=== PATIENT | female | born 1980 | race African-American/Black ===

== ENCOUNTER 2019-08-02 19:23 | Emergency (ER) | payer MEDICARE, OTHER ==
[~2019-08-02] VITALS: Ht 175.3 cm; Wt 72.6 kg
--- NOTE | 2019-08-02 19:24 | NUR ---
ED Nurse Note: Pt brought in by ambulance from home, c/o 06/26 generalized pain and leg cramps. Pt has hx of MS. Pt denies trauma or fall. Pt VSS, Pt A&Ox4
[2019-08-02 19:28] VITALS: BP 100/71
--- NOTE | 2019-08-02 19:41 | Emergency Room Report ---
History of Present Illness General Chief Complaint: Pain Source: Patient Present Illness HPI Disclaimer: Please note that this report is being documented using [employer] technology. This can lead to erroneous entry secondary to incorrect interpretation by the dictating instrument. HPI: 39-year-old female with history of multiple sclerosis presents for evaluation of body wide pain. Symptoms began approximately 1 hour ago. The patient was otherwise in her usual state of health and now complaining of diffuse spasm and cramping over the entire left side of the body, left side of the face, the abdomen but sparing the right upper extremity. She states she has had this pain multiple times in the past. She took 60 mg of baclofen without significant improvement in her symptoms. She had MRIs of her brain and spine 1 month ago showing no acute flare of MS. Otherwise within usual state of health and denies any visual changes, sudden weakness, changes in sensation. PMH: Multiple sclerosis PSH: Reports [employer] surgery many years ago Allergies: Denies Social Hx: Denies Allergies: Coded Allergies: No Known Allergies (Unverified , 08/02/19) Patient History Last Menstrual Period: n/a Nursing Documentation-PMH Past Medical History: No History, Except For Review of Systems All Other Systems: negative except mentioned in HPI Physical Exam Vital Signs Date Time Temp Pulse Resp B/P (MAP) Pulse Ox O2 Delivery O2 Flow Rate FiO2 08/02/19 19:18 100 22 98 Room Air 08/02/19 19:20 98.4 100/71 (81) General: Awake and alert, appears very uncomfortable, diaphoretic, writhing in pain in the bed HEENT: NC/AT. EOMI. symmetrical facial expressions. Cardiovascular: Tachycardic. S1 and S2 normal. No murmur appreciated Resp: Normal work of breathing. No cough, wheezing or crackles appreciated Abdomen: Abdomen is soft, nondistended. Nontender Skin: Intact. No abrasions, laceration or rash over the exposed skin. Diaphoretic MSK: Left upper extremity and lower extremities are very tender to palpation as is the entire back. The patient is holding her left upper extremity and contracture and hunched over sitting up in bed. Neuro: Awake and alert. Mentating appropriately. Medical Decision Making Diagnostic Impression: Primary Impression: Pain Additional Impressions: Hypokalemia Hypomagnesemia Spasticity ER Course 39-year-old female presents for evaluation of diffuse body wide pain and spasm. She is taking 60 mg back with him prior to arrival without significant improvement. She appears to be in acute distress, diaphoretic, tachycardic and diffusely tender palpation aside from the right upper extremity. Will give pain medication and antispasmodics to try to control the patient's system to preferred a more focused exam and obtain more history. Laboratory Tests Test 08/02/19 20:40 White Blood Count 8.0 K/UL (4.8-10.8) Red Blood Count 3.82 M/UL (4.20-5.40) L Hemoglobin 11.4 G/DL (12.0-16.0) L Hematocrit 32.5 % (37.0-47.0) L Mean Corpuscular Volume 85 FL (80-99) Mean Corpuscular Hemoglobin 29.7 PG (27.0-31.0) Mean Corpuscular Hemoglobin Concent 35.0 G/DL (32.0-36.0) Red Cell Distribution Width 10.5 % (11.6-14.8) L Platelet Count 296 K/UL (150-450) Mean Platelet Volume 5.5 FL (6.5-10.1) L Neutrophils (%) (Auto) 71.5 % (45.0-75.0) Lymphocytes (%) (Auto) 19.1 % (20.0-45.0) L Monocytes (%) (Auto) 7.1 % (1.0-10.0) Eosinophils (%) (Auto) 1.4 % (0.0-3.0) Basophils (%) (Auto) 0.8 % (0.0-2.0) Sodium Level 134 MMOL/L (136-145) L Potassium Level 3.0 MMOL/L (3.5-5.1) L Chloride Level 102 MMOL/L (98-107) Carbon Dioxide Level 28 MMOL/L (21-32) Anion Gap 4 mmol/L (5-15) L Blood Urea Nitrogen 9 mg/dL (7-18) Creatinine 0.7 MG/DL (0.55-1.30) Estimate Glomerular Filtration Rate > 60 mL/min (>60) Glucose Level 87 MG/DL (74-106) Calcium Level 8.4 MG/DL (8.5-10.1) L Magnesium Level 1.6 MG/DL (1.8-2.4) L Reevaluation Time: 20:26 Last Vital Signs Date Time Temp Pulse Resp B/P (MAP) Pulse Ox O2 Delivery O2 Flow Rate FiO2 08/02/19 19:28 98.4 18 100/71 100 Room Air 08/02/19 19:20 103 Reevaluation Impression Patient had some improvement after receiving her medications and is now more calm and cooperative. I find no obvious deformity on physical exam and overall she is far more calm, no longer diaphoretic and heart rate is improving as well. She states that this is a very similar presentation which has been having several times over the past month and has an appointment with her MS specialist in [place] scheduled for Sunday, 2 days from now. She would like to avoid a hospital admission if possible. I will order labs to rule out other organic causes of diffuse spasticity and continue to treat her pain and spasm. If her symptoms can be controlled she can be discharged and follow-up with her MS and neurology specialty teams. 2130: Pain is improved. Patient is now calm and resting for more comfortably. She is found to have low magnesium and potassium which we will replete with IV and oral medications. After repletion she may be discharged home to follow-up Sunday morning with her MS specialist. Discussed reasons to return to the emergency department. She understands and agrees with this treatment plan. Disposition: HOME, SELF-CARE Condition: Improved Scripts Potassium Chloride* (K-DUR*) 20 Meq Tab.er.prt 20 MEQ ORAL DAILY for 5 Days, #5 TAB 0 Refills Prov: Chema Pop MD 08/02/19 Chema Pop MD Aug 02, 2019 19:41
[2019-08-02] MEDS ORDERED: Hydromorphone 0.5mg/0.5ml inj SUBQ ONE (19:45)
[2019-08-02 21:07] LABS: BASOPHILS % (AUTO) 0.8 % (0.0-2.0); EOSINOPHILS % (AUTO) 1.4 % (0.0-3.0); HEMATOCRIT 32.5 % (37.0-47.0); HEMOGLOBIN 11.4 G/DL (12.0-16.0); LYMPHOCYTES % (AUTO) 19.1 % (20.0-45.0); MEAN CORPUSCULAR VOLUME 85 FL (80-99); MONOCYTES % (AUTO) 7.1 % (1.0-10.0); NEUTROPHILS % (AUTO) 71.5 % (45.0-75.0); PLATELET COUNT 296 K/UL (150-450); RED BLOOD COUNT 3.82 M/UL (4.20-5.40); RED CELL DISTRIBUTION WIDTH 10.5 % (11.6-14.8)
[2019-08-02 21:14] LABS: ANION GAP 4 mmol/L (5-15); BLOOD UREA NITROGEN 9 mg/dL (7-18); CALCIUM 8.4 MG/DL (8.5-10.1); CARBON DIOXIDE 28 MMOL/L (21-32); CHLORIDE 102 MMOL/L (98-107); CREATININE 0.7 MG/DL (0.55-1.30); SODIUM 134 MMOL/L (136-145)
--- NOTE | 2019-08-02 21:30 | NUR ---
ED Nurse Note: IV KCL not given, spiked but ERMD changed mind, oral potassium given per new order
[2019-08-02] MEDS ORDERED: POTASSIUM CHLO20 ME1 ORAL (21:34)
[2019-08-02] MEDS ORDERED: HYDROcodone/Acetamin 7.5/325 tab ORAL ONE (22:00)
[2019-08-02 22:50] VITALS: BP 98/67
--- NOTE | 2019-08-02 22:50 | NUR ---
ER DISCHARGE NOTE: Patient is cleared to be discharged per ERMD, pt is aox4, on room air, with stable vital signs. Pt given discharge instructions and prescription instructions, verbalized understanding. Pt ambulating with slow gait with assistance from friend. IV and wristband removed without complications.
== END 2019-08-02 22:50 | disposition home or self-care (01) ==
LOC: EDBD 19:23 → EMR 19:54
DX: R52 Pain, unspecified (principal); E87.6 Hypokalemia; E83.42 Hypomagnesemia; R25.2 Cramp and spasm; G35 Multiple sclerosis
CPT/HCPCS: 36415; 80048; 83735; 85025; 96365; 96367; 99284; J1170; J3480; J8499